=== PATIENT | female | born 1980 | race Caucasian/White ===

== ENCOUNTER 2017-07-14 21:47 | Emergency (ER) | payer BC ==
[2017-07-14 22:16] VITALS: BP 120/85; PULSE 98; RESP 20; TEMP 97.9; O2SAT 96
--- NOTE | 2017-07-14 22:19 | C.PDOC ---
History Of Present Illness 36 y/o female c/o right ear pain since 02:00 yesterday. Patient used her leftover ear drops and Motrin PO with no improvement, which prompted the visit. Patient reports a past h/o of Lt ear surgery in 2013 dur to infection and is concerned of the development of a similar occurrence. Patient denies URI symptoms, fever, chills, or trauma to the ear. Time Seen by Provider: 07/14/17 22:03 Chief Complaint (Nursing): ENT Problem History Per: Patient History/Exam Limitations: None Onset/Duration Of Symptoms: Days Current Symptoms Are (Timing): Still Present Severity: Mild Past Medical History Reviewed: Historical Data, Nursing Documentation, Vital Signs Vital Signs: Last Vital Signs Temp 97.9 F 07/14/17 21:58 Pulse 98 H 07/14/17 21:58 Resp 20 07/14/17 21:58 BP 120/85 07/14/17 21:58 Pulse Ox 96 07/15/17 05:42 - Medical History PMH: Denies: Depression - [facility] Procedures MYRINGOTOMY W INTUBATION (08/07/14) Family History: States: Unknown Family Hx - Social History Hx Tobacco Use: No Hx Alcohol Use: No Hx Substance Use: No - Immunization History Hx Tetanus Toxoid Vaccination: No Hx Influenza Vaccination: Yes Hx Pneumococcal Vaccination: No Review Of Systems Except As Marked, All Systems Reviewed And Found Negative. Constitutional: Negative for: Fever, Chills, Other (Trauma) ENT: Positive for: Ear Pain (right). Negative for: Nose Discharge, Nose Congestion, Throat Pain Respiratory: Negative for: Cough Physical Exam - Physical Exam Appears: Non-toxic, No Acute Distress Skin: Warm, Dry Head: Atraumatic, Normacephalic, No Swelling (No neck or facial swelling) Eye(s): bilateral: Normal Inspection Ear(s): Right: Other (Right tragal tenderness. Swelling and erythema of the right ear canal. Right postauricular adenapathy. No mastoid bone tenderness. No effusion of the ear. Normal TM.) Oral Mucosa: Moist, No Drooling Lips: Normal Appearing Throat: Normal, No Erythema Neck: Normal, Supple Neurological/Psych: Oriented x3 ED Course And Treatment O2 Sat by Pulse Oximetry: 96 (RA) Pulse Ox Interpretation: Normal Progress Note: Patient is resting comfortably, and is in no acute distress. Patient was instructed to follow up with physician/or ENT in 1-2 days for further evaluation. Disposition Counseled Patient/Family Regarding: Diagnosis, Need For Followup, Rx Given - Disposition Referrals: Alfred Robert MD [Non-Staff] - Disposition: HOME/ ROUTINE Disposition Time: 22:15 Condition: STABLE Additional Instructions: Use ear drops as directed Follow up with PMD or ENT Tylenol or motrin for pain Return to ER if facial or neck swelling, fever, draining from ear or worse Prescriptions: Acetaminophen with Codeine [Tylenol with Codeine #3 Tablet] 1 - 2 each PO QID # 10 tablet Ofloxacin Otic 0.3% [Floxin 0.3% Otic Soln] 5 drop AD BID #1 bottle Instructions: Otitis Externa (ED) Forms: [employer] (Burmese) - Clinical Impression Clinical Impression: Otitis externa - Scribe Statement The provider has reviewed the documentation as recorded by the Scribe Josse gusman All medical record entries made by the Scribe were at my direction and personally dictated by me. I have reviewed the chart and agree that the record accurately reflects my personal performance of the history, physical exam, medical decision making, and the department course for this patient. I have also personally directed, reviewed, and agree with the discharge instructions and disposition.
== END 2017-07-14 22:30 | disposition home or self-care (01) ==
LOC: C.ER 21:47
DX: H60.91 Unspecified otitis externa, right ear (principal)